=== PATIENT | female | born 1985 | race Caucasian/White ===

== ENCOUNTER 2020-04-11 07:44 | Emergency (ER) | payer OTHER ==
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
[2020-04-11 07:57] VITALS: BP 161/105
--- NOTE | 2020-04-11 09:41 | XRAY Report ---
PROCEDURE: Knee 4 View LT INDICATIONS: knee inj TECHNIQUE: 3 views of the left knee(s) were acquired. COMPARISON: None. FINDINGS: Bones: No fractures or dislocations. No suspicious bony lesions. Soft tissues: No joint effusion. No suspicious soft tissue calcifications. IMPRESSION: No patella fracture is detected. No significant plain film abnormality is seen. If there is strong clinical concern for internal derangement of the knee, please consider a dedicated knee MRI for further evaluation (assuming that there is no contraindication). Reviewed by: Jc Kowalski MD on 04/11/2020 8:40 AM JUSTINO Approved by: Jc Kowalski MD on 04/11/2020 8:40 AM JUSTINO Station ID: [id number]
== END 2020-04-11 09:01 | disposition home or self-care (01) ==
LOC: ED 07:44
DX: S80.02XA Contusion of left knee, initial encounter (principal); W22.8XXA Striking against or struck by other objects, initial encounter; Y93.F9 Activity, other caregiving; Y92.199 Unspecified place in other specified residential institution as the place of occurrence of the external cause; Y99.0 Civilian activity done for income or pay
CPT/HCPCS: 1040M; 73564; 99282; 99283

== ENCOUNTER 2020-12-24 17:38 | Emergency (ER) | payer OTHER ==
[2020-12-24 17:50] VITALS: BP 146/99
[2020-12-24] MEDS ORDERED: TETANUS/DIPHTHERIA/PERTUSSIS 0.5 ML SYRINGE IM ONE (18:05)
[2020-12-24] MEDS ORDERED: BUFFERED LIDOCAINE 10 ML SYRINGE SUBQ STA (18:05)
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
== END 2020-12-24 18:31 | disposition home or self-care (01) ==
LOC: ED 17:38
DX: S61.210A Laceration without foreign body of right index finger without damage to nail, initial encounter (principal); S61.011A Laceration without foreign body of right thumb without damage to nail, initial encounter; S61.512A Laceration without foreign body of left wrist, initial encounter; W26.8XXA Contact with other sharp object(s), not elsewhere classified, initial encounter
CPT/HCPCS: 12001; 90471; 99282; 99283

== ENCOUNTER 2023-11-14 09:18 | Emergency (ER) | payer OTHER ==
[2023-11-14 10:08] VITALS: BP 135/86; O2SAT 100
--- NOTE | 2023-11-14 10:42 | XRAY Report ---
PROCEDURE: Hand 3+V RT INDICATIONS: Trauma TECHNIQUE: 3 views of the hand(s) acquired. COMPARISON: None. FINDINGS: Bones: No fractures or dislocations. No suspicious bony lesions. Soft tissues: No suspicious soft tissue calcifications or masses. IMPRESSION: No acute bony abnormality. Reviewed by: Cathy Robertson MD, PhD on 11/14/2023 10:41 AM PDT Approved by: Cathy Robertson MD, PhD on 11/14/2023 10:41 AM PDT Station ID: [id number]
--- NOTE | 2023-11-14 11:36 | ED Physician Documentation ---
PD HPI UPPER EXT INJURY - Stated complaint Stated Complaint: RT HAND INJ - Chief complaint Chief Complaint: Trauma Ext - Additonal information Additional information: 38-year-old female history of hypertension, type 2 diabetes, hypothyroidism presents emergency department after an empty bookshelf fell onto the palmar aspect of her right hand last night. She has pain with flexion of all 4 fingers most of her pain is in her right middle finger. Normal capillary refill, numbness and tingling to the fingertips but still able to feel when I touch them. She feels a sharp shooting pain of her shoulder with any fingertip palpation. 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 - Allergies Allergies/Adverse Reactions: Allergies Allergy/AdvReac Type Severity Reaction Status Date / Time acetaminophen [From Vicodin] Allergy Unknown Verified 11/14/23 10:04 hydrocodone [From Vicodin] Allergy Unknown Verified 11/14/23 10:04 hydromorphone [From Dilaudid] Allergy Unknown Verified 11/14/23 10:04 - Social History Does the pt smoke?: No Smoking Status: Never smoker Does the pt drink ETOH?: No Does the pt have substance abuse?: No PD ED PE NORMAL - Vitals Vital signs reviewed: Yes - General General: Alert and oriented X 3, No acute distress, Well developed/nourished - Derm Derm: Normal color, Warm and dry, No rash, Other (No abrasions or lacerations to right hand) PD ED PE EXPANDED - Extremities Extremities: Swelling (mainly to left middle finger), Right hand, Right finger(s), Motor intact, Sensory intact, Vascular intact, Tendon intact Results - Vitals Vitals: Vital Signs - 24 hr 11/14/23 09:57 Temperature 36.9 C Heart Rate 81 Respiratory 15 Rate Blood Pressure 135/86 H O2 Saturation 100 Oxygen O2 Source Room air - Rads (name of study) Right hand x-rays Relevant Findings:: Final report received, EMP independent interpretation of test, Other (No acute bony abnormalities or findings) PD Medical Decision Making - ED course ED course: 38-year-old female presents emergency department for right hand pain patient reports that most of her pain is a numbness tingling sensation to her fingertips. She also says that the finger that hurts the most is her right middle finger. Patient is able to flex all fingers but refuses to bend her middle finger she says due to pain. I am able to do passive range of motion to her middle finger she does endorse and pain with this but there is no crepitus or popping no concerns of dislocation. X-rays of the right hand were complete for further evaluation and no fractures or bony abnormalities are visualized. Patient has not taken any pain medicine such as Tylenol or ibuprofen today she was given a Toradol shot here in the emergency department and says that she is unable to take Tylenol due to liver issues. An Kashif wrap was put on patient's hand for compression she is told to follow-up with her primary care provider outpatient for further evaluation and to continue to take either Aleve or ibuprofen for pain and discomfort. Patient told to follow-up with primary care provider if no symptom improvement or worsening pain within a week ER return precautions given all questions answered. Departure - Departure Disposition: 01 Home, Self Care Clinical Impression: Contusion, hand Instructions: ED Contusion Hand Comments: Thank you for trusting us with your care I do believe that you are experiencing pain and swelling in your hand due to a deep bruise called a contusion. You can ice it for 20 minutes at a time 1 hour off keep it elevated above your heart is much as possible and I would consider using Aleve instead of ibuprofen you can take 500 mg every 12 hours for pain and discomfort. Please help with your primary care provider for repeat imaging in 7 to 10 days if pain is gotten any worse as we discussed sometimes there are fractures that can be missed initially And do not show up later until 7 to 10 days out. Forms: PCP List Discharge Date/Time: 11/14/23 11:57
[2023-11-14] MEDS: KETOROLAC 30 MG/ML VIAL IM STA (11:46)
== END 2023-11-14 11:57 | disposition home or self-care (01) ==
LOC: ED 09:18
DX: S60.221A Contusion of right hand, initial encounter (principal); W20.8XXA Other cause of strike by thrown, projected or falling object, initial encounter; I10 Essential (primary) hypertension; E11.9 Type 2 diabetes mellitus without complications; E03.9 Hypothyroidism, unspecified
CPT/HCPCS: 96372; 99283; 99284